=== PATIENT | male | born 1955 | race Caucasian/White ===

== ENCOUNTER → 2021-03-02 12:46 | Outpatient (CLI) | payer OTHER ==
[2021-03-02 13:25] LABS: BASOPHILS 0.6 % (0-2); EOSINOPHILS 0.3 % (0-7); HEMATOCRIT 37.1 % (42.0-54.0); HEMOGLOBIN 12.4 g/dL (13.5-17.5); LYMPHOCYTES 8.5 % (15-50); MCH 29.5 pg (26.0-34.0); MCHC 33.6 g/dL (31.0-37.0); NEUTROPHILS 81.6 % (40-80); PLATELET COUNT 699 10x3/uL (130-400); RBC 4.21 10x6/uL (4.20-6.10); RDW 13.3 % (11.5-14.5); WBC 10.5 10x3/uL (4.8-10.8)
[2021-03-02 13:41] LABS: ALBUMIN 2.7 g/dL (3.4-5.0); ALKALINE PHOSPHATASE 105 U/L (30-120); ALT (SGPT) 31 U/L (10-68); BILIRUBIN - TOTAL 0.27 mg/dL (0.2-1.3); CALC OSMOLALITY 277 mosm/kg (275-300); CALCIUM 8.5 mg/dL (8.5-10.1); CARBAMAZEPINE (TEGRETOL) 9.6 ug/mL (4.0-12.0); CARBON DIOXIDE 28.8 mmol/L (21.0-32.0); CHLORIDE - SERUM 102 mmol/L (98-107); CREATININE - SERUM 0.7 mg/dL (0.6-1.3); PHENOBARBITAL 14.4 ug/mL (15.0-40.0); POTASSIUM - SERUM 3.6 mmol/L (3.5-5.1); PROTEIN - SERUM 7.2 g/dL (6.4-8.2); SODIUM 139 mmol/L (136-145); UREA NITROGEN 6 mg/dL (7-18); eGFR NON AFRICAN AMERICAN > 90 mL/min (90-120)
[2021-03-02 13:53] LABS: GLUCOSE 131 mg/dL (74-106)
[2021-03-04 10:12] LABS: PRIMIDONE 8.1 ug/mL (5.0-12.0)
== END | disposition home or self-care (01) ==
LOC: D.LAB 12:46
PROVIDERS: ATTEND Psychiatry & Neurology Neurology
DX: R56.9 Unspecified convulsions (principal)